=== PATIENT | male | born 2000 | race African-American/Black ===

== ENCOUNTER 2019-08-31 17:34 | Emergency (ER) | payer OTHER ==
[~2019-08-31] VITALS: Ht 170.2 cm; Wt 97.5 kg
[2019-08-31 17:38] VITALS: BP 128/74
[2019-08-31] MEDS ORDERED: NORFLEX100 MG PO (19:17)
[2019-08-31] MEDS ORDERED: MOBIC7.5 MG PO (19:17)
== END 2019-08-31 19:37 | disposition home or self-care (01) ==
LOC: ER 17:34
DX: S39.012A Strain of muscle, fascia and tendon of lower back, initial encounter (principal); S46.811A Strain of other muscles, fascia and tendons at shoulder and upper arm level, right arm, initial encounter; V43.62XA Car passenger injured in collision with other type car in traffic accident, initial encounter; Y93.89 Activity, other specified; Y92.488 Other paved roadways as the place of occurrence of the external cause; Y99.8 Other external cause status

== ENCOUNTER 2020-03-23 09:44 | Emergency (ER) | payer OTHER ==
[~2020-03-23] VITALS: Ht 172.7 cm; Wt 99.8 kg
[~2020-03-23 09:44] MED LIST: MOBIC7.5 MG PO; NORFLEX100 MG PO
[2020-03-23] MEDS ORDERED: ONDANSETRON ODT8 MG PO (11:14)
[2020-03-23] MEDS ORDERED: PRILOSEC OTC20 MG PO (11:14)
[2020-03-23 11:23] VITALS: BP 133/91
== END 2020-03-23 11:27 | disposition home or self-care (01) ==
LOC: ER 09:44
DX: R11.2 Nausea with vomiting, unspecified (principal); R10.13 Epigastric pain; K21.9 Gastro-esophageal reflux disease without esophagitis; Z79.899 Other long term (current) drug therapy